=== PATIENT | female | born 1995 | race Caucasian/White ===

== ENCOUNTER 2017-04-24 13:04 | Emergency (ER) | payer OTHER ==
[2017-04-24 13:20] VITALS: BP 112/64; PULSE 68; RESP 18; TEMP 98.9
--- NOTE | 2017-04-24 14:08 | ED ---
General Adult HPI - General Chief complaint: Abdominal Pain Stated complaint: 6 wks preg. Abd Pain Time Seen by Provider: 04/24/17 13:38 Source: patient, RN notes reviewed Mode of arrival: ambulatory Limitations: no limitations - History of Present Illness Initial comments: Patient is a 21-year-old female is approximately 6 weeks by last menstrual cycle, who presents emergency room today with a chief complaint of upper abdominal pain over the last 2 days. She states it's been off-and-on. Does admit that it seems to be worse after eating. States that she did eat breakfast this morning and then shortly thereafter the symptoms started. Patient denies any other complaints or symptoms. Patient denies any recent fever , chills, shortness of breath, chest pain, back pain, nausea or vomiting, numbness or tingling, vaginal bleeding or discharge, dysuria or hematuria, constipation or diarrhea, headaches or visual changes, or any other complaints. - Related Data Allergies Allergy/AdvReac Type Severity Reaction Status Date / Time citalopram [From Celexa] Allergy Swelling Verified 04/24/17 13:21 quetiapine [From Seroquel] Allergy Swelling Verified 04/24/17 13:21 venlafaxine [From Effexor] Allergy Swelling Verified 04/24/17 13:21 Review of Systems ROS Statement: Those systems with pertinent positive or pertinent negative responses have been documented in the HPI. ROS Other: All systems not noted in ROS Statement are negative. Past Medical History Past Medical History: Asthma History of Any Multi-Drug Resistant Organisms: None Reported Past Surgical History: No Surgical Hx Reported Past Psychological History: No Psychological Hx Reported Smoking Status: Current every day smoker Past Alcohol Use History: None Reported Past Drug Use History: None Reported General Exam - General Exam Comments Initial Comments: General: The patient is awake and alert, in no distress, and does not appear acutely ill. Eye: Pupils are equal, round and reactive to light, extra-ocular movements are intact. No nystagmus. There is normal conjunctiva bilaterally. No signs of icterus. Ears, nose, mouth and throat: There are moist mucous membranes and no oral lesions. Neck: The neck is supple, there is no tenderness or JVD. Cardiovascular: There is a regular rate and rhythm. No murmur, rub or gallop is appreciated. Respiratory: Lungs are clear to auscultation, respirations are non-labored, breath sounds are equal. No wheezes, stridor, rales, or rhonchi. Gastrointestinal: Soft, non-distended. Mild tenderness in epigastric. No tenderness in the lower abdomen. There is no rebound or guarding present. No CVA tenderness. Bowel sounds are unremarkable. Musculoskeletal: Normal ROM, no tenderness. Strength 5/5. Sensation intact. Pulses equal bilaterally 2+. Neurological: A&O x 3. CN II-XII intact, There are no obvious motor or sensory deficits. Coordination appears grossly intact. Speech is normal. Skin: Skin is warm and dry and no rashes or lesions are noted. Psychiatric: Cooperative, appropriate mood & affect, normal judgment. Limitations: no limitations Course Vital Signs 04/24/17 13:18 Temperature 98.9 F Pulse Rate 68 Respiratory 18 Rate Blood Pressure 112/64 O2 Sat by Pulse 100 Oximetry Medical Decision Making - Medical Decision Making Exam here in the emergency room does have some mild discomfort in epigastric area. Does admit that is been off and on over the last 2 days does seem to be worse after eating. States started after having breakfast this morning. States not tried anything for the pain. Denies any vaginal bleeding or discharge. Denies any lower abdominal pain. Patient 6 weeks . Last menstrual cycle. Options were discussed with patient about ultrasound. Was discussed about possibility pain as reflux. At this time patient feels comfortable try medication of Tums or Pepcid [id number] for her symptoms. She has declined. SHE will return to emergency room symptoms increase or worsen. Disposition Clinical Impression: Abdominal pain Disposition: HOME SELF-CARE Condition: Good Instructions: Abdominal Pain (ED) Additional Instructions: Please use the counter Tums/Pepcid as needed for symptoms. Please follow-up with family doctor in the next 2 days of symptoms have not improved. Please return to emergency room if the symptoms increase or worsen or for any other concerns. Referrals: Elana Zuniga MD [Primary Care Provider] - 1-2 days Time of Disposition: 14:07
== END 2017-04-24 14:00 | disposition home or self-care (01) ==
LOC: EC 13:04
DX: O99.89 Other specified diseases and conditions complicating pregnancy, childbirth and the puerperium (principal); R10.13 Epigastric pain; O99.331 Smoking (tobacco) complicating pregnancy, first trimester; F17.200 Nicotine dependence, unspecified, uncomplicated; Z3A.01 Less than 8 weeks gestation of pregnancy; Z88.8 Allergy status to other drugs, medicaments and biological substances
CPT/HCPCS: 99283

== ENCOUNTER 2017-04-25 10:10 | Emergency (ER) | payer OTHER ==
--- NOTE | 2017-04-25 10:39 | ED ---
General Adult HPI - General Chief complaint: Vaginal Bleeding Stated complaint: 6 weeks and bleeding Time Seen by Provider: 04/25/17 10:10 Source: patient, RN notes reviewed Mode of arrival: ambulatory Limitations: no limitations - History of Present Illness Initial comments: This is a 21-year-old female who presents emergency Department stating that she had some blood in the toilet after she urinated. Patient states she doesn't know if it's in her urine or if it's vaginal bleeding. Patient states she believes she is about 6 weeks based on her last menstrual period. Patient states she was here in the emergency department yesterday for epigastric abdominal pain which she has no longer experiencing. Patient states she's had no pain today no cramping today. Patient denies any nausea vomiting. Patient denies diarrhea per patient denies any fever. Patient denies any dysuria or frequency. Patient denies any back pain. Patient has no complaint of pain anywhere. - Related Data Home Medications Medication Instructions Recorded Confirmed Albuterol Sulfate [Proair Hfa] 2 puff INHALATION RT-Q6H PRN 04/24/17 04/25/17 Pnv No.95/Ferrous Fum/Folic AC 1 tab PO HS 04/24/17 04/25/17 [ Multivitamin Tablet] Allergies Allergy/AdvReac Type Severity Reaction Status Date / Time citalopram [From Celexa] Allergy Swelling Verified 04/25/17 12:00 quetiapine [From Seroquel] Allergy Swelling Verified 04/25/17 12:00 venlafaxine [From Effexor] Allergy Swelling Verified 04/25/17 12:00 Review of Systems ROS Statement: Those systems with pertinent positive or pertinent negative responses have been documented in the HPI. ROS Other: All systems not noted in ROS Statement are negative. Past Medical History Past Medical History: Asthma History of Any Multi-Drug Resistant Organisms: None Reported Past Surgical History: No Surgical Hx Reported Past Psychological History: No Psychological Hx Reported Smoking Status: Current every day smoker Past Alcohol Use History: None Reported Past Drug Use History: None Reported General Exam - General Exam Comments Initial Comments: GENERAL: Patient is well-developed and well-nourished. Patient is nontoxic and well- hydrated and is in no acute distress. ENT: Neck is soft and supple. No significant lymphadenopathy is noted. Oropharynx is clear. Moist mucous membranes. EYES: The sclera were anicteric and conjunctiva were pink and moist. Extraocular movements were intact and pupils were equal round and reactive to light. Eyelids were unremarkable. PULMONARY: Unlabored respirations. Good breath sounds bilaterally. No audible rales rhonchi or wheezing was noted. CARDIOVASCULAR: There is a regular rate and rhythm without any murmurs gallops or rubs. ABDOMEN: Soft and nontender with normal bowel sounds. SKIN: Skin is clear with no lesions or rashes and otherwise unremarkable. NEUROLOGIC: Patient is alert and oriented x3. Cranial nerves II through XII are grossly intact. Motor and sensory are also intact. Normal speech, volume and content. Symmetrical smile. MUSCULOSKELETAL: Normal extremities with adequate strength and full range of motion. No lower extremity swelling or edema. No calf tenderness. LYMPHATICS: No significant lymphadenopathy is noted PSYCHIATRIC: Normal psychiatric evaluation. PELVIC On speculum exam there was no active bleeding noted the os was closed and no dried blood was even noted. Limitations: no limitations Course Vital Signs 04/25/17 10:12 Temperature 97.1 F L Pulse Rate 85 Respiratory 18 Rate Blood Pressure 130/86 O2 Sat by Pulse 98 Oximetry Medical Decision Making - Medical Decision Making Ultrasound showed a viable intrauterine dating approximately 6 weeks 5 days. - Lab Data Lab Results 04/25/17 04/25/17 04/25/17 Range/Units 10:40 10:40 10:45 HCG, Quant 68837.2 mIU/mL Urine Color Colorless Urine Appearance Cloudy H (Clear) Urine pH 6.5 (5.0-8.0) Ur Specific [place] 1.006 (1.001-1.035) Urine Protein Negative (Negative) Urine Glucose (UA) Negative (Negative) Urine Ketones Negative (Negative) Urine Blood Negative (Negative) Urine Nitrite Negative (Negative) Urine Bilirubin Negative (Negative) Urine Urobilinogen <2.0 (<2.0) mg/dL Ur Leukocyte Esterase Large H (Negative) Urine RBC 5 (0-5) /hpf Urine WBC 11 H (0-5) /hpf Ur Squamous Epith Cells 3 (0-4) /hpf Amorphous Sediment Rare H (None) /hpf Urine Mucus Rare H (None) /hpf Blood Type O Positive Blood Type Recheck No Disposition Clinical Impression: Threatened Disposition: HOME SELF-CARE Condition: Good Instructions: Threatened Miscarriage (ED) Referrals: Elana Zuniga MD [Primary Care Provider] - 1-2 days Time of Disposition: 12:40
[2017-04-25 11:00] LABS: Amorphous Sediment,Urine Rare /hpf; Appearance,Urine Cloudy (Clear); Bilirubin,Urine Negative (Negative); Glucose,Urine (UA) Negative (Negative); Ketones,Urine Negative (Negative); Leukocyte Esterase,Urine Large (Negative); Mucus,Urine Rare /hpf; Nitrite,Urine Negative (Negative); PH, Urine 6.5 (5.0-8.0); Particle Count 7075; Protein,Urine Negative (Negative); RBC,Urine 5 /hpf (0-5); Specific Gravity,Urine 1.006 (1.001-1.035); Squamous Epithelial Cell,Urine 3 /hpf (0-4); UA Billing (MACRO vs. MICRO) MICRO; Urobilinogen,Urine <2.0 mg/dL (<2.0); WBC,Urine 11 /hpf (0-5)
--- NOTE | 2017-04-25 12:31 | US ---
EXAMINATION TYPE: US OB <=14 wks transvag DATE OF EXAM: 04/25/2017 COMPARISON: NONE CLINICAL HISTORY: Pain. EXAM PERFORMED: Transvaginal (TV) and Transabdominal (TA) EXAM MEASUREMENTS: GESTATIONAL AGE / DATING Physician Established: Not yet established Dates by LMP: (6 weeks/5 days) EDC: 12/14/2017 Dates by First Scan: No previous this is first scan Dates by Current Scan for: (6 weeks/4 days) EDC: 12/15/2017 MATERNAL ANATOMY Uterus: 8.4 x 4.9 x 5.0 cm Right Ovary: 3.2 x 1.2 x 1.5 cm Left Ovary: 3.2 x 1.8 x 2.1 cm Post CDS / Adnexa: wnl Presence of free fluid: No Presence of corpus luteal cyst: No Presence of subchorionic bleed: No GESTATION / SURVEY CRL: 0.74 cm (6 weeks/4 days) Yolk Sac (normal less than 6mm): 2 mm Heart Rate: 119 bpm Rhythm: Normal IUP: Viable IUP Date of LMP: 03/09/2017 Beta HcG (if available): 37,484 Viable IUP, measurements concordant with dates IMPRESSION: Viable intrauterine gestation with a gestational age of 6 weeks 4 days +/- 5 days. Estimated date of confinement based on this examination is 11/15/2017
[2017-04-25 12:44] VITALS: BP 120/60; PULSE 95; RESP 17; TEMP 98
== END 2017-04-25 12:59 | disposition home or self-care (01) ==
LOC: EC 10:10
DX: O20.0 Threatened abortion (principal); O99.331 Smoking (tobacco) complicating pregnancy, first trimester; F17.200 Nicotine dependence, unspecified, uncomplicated; Z79.899 Other long term (current) drug therapy; Z88.8 Allergy status to other drugs, medicaments and biological substances; Z3A.01 Less than 8 weeks gestation of pregnancy
CPT/HCPCS: 36415; 76801; 76817; 81001; 84702; 86900; 86901; 87070; 87086; 87205; 87491; 87591; 87808; 99284

== ENCOUNTER 2017-04-29 12:55 | Emergency (ER) | payer OTHER ==
--- NOTE | 2017-04-29 13:30 | ED ---
General Adult HPI <Leann Mckeon - Last Filed: 04/29/17 14:15> - General Source: patient, EMS, RN notes reviewed Mode of arrival: EMS <Elijah Williamson - Last Filed: 04/29/17 14:41> - General Chief complaint: Vaginal Bleeding Stated complaint: Possible Miscarriage Time Seen by Provider: 04/29/17 13:00 - History of Present Illness Initial comments: This is a 21-year-old female who presents emergency Department stating that she is 7 weeks . Patient states this morning she started having vaginal bleeding and she continues to do so. Patient states is a little discomfort in the lower pelvic and lower back area. Patient states feels like a normal menstrual cycle to her. Patient denies ever being before. Patient denies any recent fever chills. Patient denies any nausea vomiting diarrhea. Patient denies any urinary frequency or urinary urgency or dysuria (Elijah Williamson) - Related Data Home Medications Medication Instructions Recorded Confirmed Albuterol Sulfate [Proair Hfa] 2 puff INHALATION RT-Q6H PRN 04/24/17 04/29/17 Pnv No.95/Ferrous Fum/Folic AC 1 tab PO HS 04/24/17 04/29/17 [ Multivitamin Tablet] Allergies Allergy/AdvReac Type Severity Reaction Status Date / Time citalopram [From Celexa] Allergy Swelling Verified 04/29/17 14:10 quetiapine [From Seroquel] Allergy Swelling Verified 04/29/17 14:10 venlafaxine [From Effexor] Allergy Swelling Verified 04/29/17 14:10 Review of Systems ROS Other: All systems not noted in ROS Statement are negative. <Leann Mckeon - Last Filed: 04/29/17 14:15> ROS Other: All systems not noted in ROS Statement are negative. <Elijah Williamson - Last Filed: 04/29/17 14:41> ROS Statement: Those systems with pertinent positive or pertinent negative responses have been documented in the HPI. Past Medical History Past Medical History: Asthma History of Any Multi-Drug Resistant Organisms: None Reported Past Surgical History: No Surgical Hx Reported Past Psychological History: No Psychological Hx Reported Smoking Status: Current every day smoker Past Alcohol Use History: None Reported Past Drug Use History: None Reported <Elijah Williamson - Last Filed: 04/29/17 14:41> General Exam External exam: Present: normal external exam Speculum exam: Present: vaginal bleeding (clots in the canal) <Leann Mckeon - Last Filed: 04/29/17 14:15> <Elijah Williamson - Last Filed: 04/29/17 14:41> - General Exam Comments Initial Comments: GENERAL: Patient is well-developed and well-nourished. Patient is nontoxic and well- hydrated and is in mild distress. ENT: Neck is soft and supple. No significant lymphadenopathy is noted. Oropharynx is clear. Moist mucous membranes. Neck has full range of motion without eliciting any pain. EYES: The sclera were anicteric and conjunctiva were pink and moist. Extraocular movements were intact and pupils were equal round and reactive to light. Eyelids were unremarkable. PULMONARY: Unlabored respirations. Good breath sounds bilaterally. No audible rales rhonchi or wheezing was noted. CARDIOVASCULAR: There is a regular rate and rhythm without any murmurs gallops or rubs. ABDOMEN: Soft and nontender with normal bowel sounds. SKIN: Skin is clear with no lesions or rashes and otherwise unremarkable. NEUROLOGIC: Patient is alert and oriented x3. Cranial nerves II through XII are grossly intact. Motor and sensory are also intact. Normal speech, volume and content. Symmetrical smile. MUSCULOSKELETAL: Normal extremities with adequate strength and full range of motion. No lower extremity swelling or edema. No calf tenderness. LYMPHATICS: No significant lymphadenopathy is noted PSYCHIATRIC: Patient is very tearful through the interview (Elijah Williamson) Vital Signs 04/29/17 13:00 Temperature 98.2 F Pulse Rate 80 Respiratory 18 Rate Blood Pressure 112/54 O2 Sat by Pulse 98 Oximetry Medical Decision Making <Leann Mckeon - Last Filed: 04/29/17 14:15> <Elijah Williamson - Last Filed: 04/29/17 14:41> - Medical Decision Making Ultrasound showed a spontaneous miscarriage (Elijah Williamson) Disposition <Leann Mckeon - Last Filed: 04/29/17 14:15> Time of Disposition: 14:40 <Elijah Williamson - Last Filed: 04/29/17 14:41> Clinical Impression: Spontaneous miscarriage Disposition: HOME SELF-CARE Condition: Good Instructions: Miscarriage (ED) Referrals: Elana Zuniga MD [Primary Care Provider] - 1-2 days
--- NOTE | 2017-04-29 14:12 | US ---
EXAMINATION TYPE: US OB <=14 wks transvag DATE OF EXAM: 04/29/2017 COMPARISON: US 04/25/2017 4 days ago. CLINICAL HISTORY: Pain. Heavy bleeding. Patient crying, wanted TV exam to end EXAM PERFORMED: Transvaginal (TV) and Transabdominal (TA) EXAM MEASUREMENTS: GESTATIONAL AGE / DATING Physician Established: Not established Dates by LMP: (7 weeks/2 days) EDC: 12/14/2017 Dates by Fi/st Scan: (7 weeks/1 days) EDC: 12/15/2017 Dates by Current Scan for: No IUP visualized on today's exam MATERNAL ANATOMY Uterus: 8.8 x 4.9 x 5.5 cm Right Ovary: 2.2 x 1.7 x 1.5 cm Left Ovary: 2.6 x 1.7 x 2.1 cm Post CDS / Adnexa: wnl Presence of free fluid: No Presence of corpus luteal cyst: Not on this exam Presence of subchorionic bleed: No GESTATION / SURVEY IUP: No IUP seen at this time Date of LMP: 03/09/2017 Beta HcG (if available): Not available at time of exam Previously visualized intrauterine is not clearly seen on current study. Findings are consi stent with interval spontaneous . No free fluid is seen in pelvis. Both ovaries are redemonstrated. No suspicious adnexal lesion is seen. IMPRESSION: Findings consistent with interval complete expulsion or spontaneous given patient's history.
[2017-04-29 14:47] VITALS: BP 108/56; PULSE 85; RESP 16; TEMP 97.8
== END 2017-04-29 14:48 | disposition home or self-care (01) ==
LOC: EC 12:55
DX: O03.9 Complete or unspecified spontaneous abortion without complication (principal); O99.331 Smoking (tobacco) complicating pregnancy, first trimester; F17.200 Nicotine dependence, unspecified, uncomplicated; Z79.899 Other long term (current) drug therapy; Z88.8 Allergy status to other drugs, medicaments and biological substances
CPT/HCPCS: 36415; 76801; 76817; 84702; 86900; 86901; 99285